=== PATIENT | male | born 1995 | race African-American/Black ===

== ENCOUNTER 2019-01-14 19:33 | Inpatient (IN) | payer MEDICAID ==
[~2019-01-14] VITALS: Ht 162.6 cm; Wt 113.4 kg
--- NOTE | 2019-01-14 20:02 | NUR ---
URINE SENT TO LAB.
[2019-01-14 20:06] LABS: APPEARANCE CLEAR (CLEAR); COLOR STRAW (YELLOW); GLUCOSE 1000 mg/dL (NEGATIVE); NITRITE NEGATIVE (NEGATIVE); PROTEIN NEGATIVE (NEGATIVE)
[2019-01-14 20:07] LABS: BILIRUBIN NEGATIVE (NEGATIVE); KETONE SMALL mg/dL (NEGATIVE); UROBILINOGEN NORMAL (NORMAL)
[2019-01-14 20:40] LABS: BASOPHILS 0.3 % (0-2); EOSINOPHILS 0.7 % (0-7); HEMATOCRIT 40.3 % (42.0-54.0); HEMOGLOBIN 14.7 g/dL (13.5-17.5); IMMATURE GRANULOCYTES 0.3 % (0-5); LYMPHOCYTES 46.8 % (15-50); MCH 27.9 pg (26.0-34.0); MCHC 36.5 g/dL (31.0-37.0); MCV 76.6 fL (80.0-100.0); MEAN PLATELET VOLUME 11.3 fL (7.4-10.4); NEUTROPHILS 43.9 % (40-80); PLATELET COUNT 232 10x3/uL (130-400); RBC 5.26 10x6/uL (4.20-6.10); RDW 13.2 % (11.5-14.5); WBC 7.1 10x3/uL (4.8-10.8)
[2019-01-14 21:11] LABS: KETONE - SERUM NEGATIVE (NEGATIVE)
[2019-01-14 21:27] LABS: ALBUMIN 4.2 g/dL (3.4-5.0); ALKALINE PHOSPHATASE 191 U/L (46-116); ALT (SGPT) 34 U/L (10-68); BILIRUBIN - TOTAL 0.36 mg/dL (0.2-1.3); CALC OSMOLALITY 288 mosm/kg (275-300); CALCIUM 9.3 mg/dL (8.5-10.1); CARBON DIOXIDE 27.4 mmol/L (21.0-32.0); CHLORIDE - SERUM 95 mmol/L (98-107); CREATININE - SERUM 1.2 mg/dL (0.6-1.3); MAGNESIUM - SERUM 1.7 mg/dL (1.8-2.4); POTASSIUM - SERUM 3.7 mmol/L (3.5-5.1); PROTEIN - SERUM 8.1 g/dL (6.4-8.2); SODIUM 133 mmol/L (136-145); UREA NITROGEN 15 mg/dL (7-18); eGFR NON AFRICAN AMERICAN 79 mL/min (90-120)
--- NOTE | 2019-01-14 21:37 | NUR ---
CRITICAL LAB CALLED BY [facility] IN LAB. SERUM GLUCOSE 494. THIS NURSE READ RESULT BACK AND NOTIFIED EDP.
[2019-01-14 21:38] LABS: GLUCOSE 494 mg/dL (74-106)
--- NOTE | 2019-01-14 21:56 | NUR ---
FSBS IS 355.
--- NOTE | 2019-01-14 23:09 | NUR ---
FSBS 247.
[2019-01-15 00:05] VITALS: BP 144/82; BMI 43.0
--- NOTE | 2019-01-15 01:09 | NUR ---
PT SITTING UP IN BED, TEACHING ON DM TYPE 2. PT VOICED CONCERN ON DIETING. TEACHING ON RESOURCES AVAILABLE TO PT. PT VOICED UNDERSTANDING. CONT WITH POC.
[2019-01-15 04:26] VITALS: BP 135/90
[2019-01-15 06:16] LABS: CALC OSMOLALITY 285 mosm/kg (275-300); CALCIUM 8.6 mg/dL (8.5-10.1); CHLORIDE - SERUM 100 mmol/L (98-107); CREATININE - SERUM 0.9 mg/dL (0.6-1.3); GLUCOSE 269 mg/dL (74-106); PHOSPHOROUS 3.3 mg/dL (2.5-4.9); SODIUM 139 mmol/L (136-145); UREA NITROGEN 11 mg/dL (7-18); eGFR NON AFRICAN AMERICAN > 90 mL/min (90-120)
[2019-01-15 06:24] LABS: HEMATOCRIT 38.6 % (42.0-54.0); HEMOGLOBIN 13.7 g/dL (13.5-17.5); MCH 27.1 pg (26.0-34.0); MCHC 35.5 g/dL (31.0-37.0); MCV 76.3 fL (80.0-100.0); MEAN PLATELET VOLUME 11.6 fL (7.4-10.4); PLATELET COUNT 244 10x3/uL (130-400); RBC 5.06 10x6/uL (4.20-6.10); RDW 13.2 % (11.5-14.5); WBC 6.5 10x3/uL (4.8-10.8)
--- NOTE | 2019-01-15 07:10 | NUR ---
REPORT RECEIVED FROM POTTERY DECORATION DESIGNER AND PATIENT CARE ASSUMED. PATIENT LAYING IN BED ON BACK WITH EYES CLOSED AND BREATHING EVENLY. WILL CONTINUE WITH PLAN OF CARE. SR UP X 2 BED IN LOW POSITION AND CALL LIGHT IN REACH.
--- NOTE | 2019-01-15 07:45 | NUR ---
POTASSIUM 3.0. MEDICATED PER MAR WITH KDUR 40 MEQ PO AND LAB DRAW SCHEDULED FOR 4 HOURS.
[2019-01-15 10:07] VITALS: Ht 162.6 cm; Wt 113.4 kg
[2019-01-15 10:49] LABS: LYMPHOCYTES 63 % (15-50); MONOCYTES 9 % (2-11); NEUTROPHILS 28 % (40-80)
[2019-01-15 10:50] LABS: PLATELET ESTIMATE NORMAL
--- NOTE | 2019-01-15 11:20 | NUR ---
PATIENT SITTING UP IN BED WATCHING TV. CONTINUED DIABETIC TEACHING. PATIENT PERFORMED BS CHECK ON SELF. DEMONSTRATED VERY GOOD PROFICIENY. BS 291. PATIENT VENKAT ON OWN INSULIN OF 6 UNITS . PATIENT DENIES ANY NEEDS OR PAIN. WILL CONTINUE TO MONITOR. SR UP X 2 BED IN LOW POSITION AND CALL LIGHT IN REACH.
--- NOTE | 2019-01-15 13:30 | NUR ---
PATIENT UP TO SHOWER. NEW GOWN PUT ON. ENCOURAGED PATIENT TO WALK ON UNIT AND SIT IN BS. EDUCATED PATIENT ABOUT BENEFITS OF INCREASED ACTIVITY ON BS. PATIENT HAS WALKED UNIT TWICE. TOLERATED WELL. PATIENT DENIES ANY NEEDS OR PAIN. WILL CONTINUE TO MONITOR. SR UP X 2 BED IN LOW POSITION AND CALL LIGHT IN REACH.
--- NOTE | 2019-01-15 15:49 | NUR ---
PATIENT WALKING ON UNIT. FRIEND AT SIDE.
[2019-01-15 19:38] VITALS: BP 147/75
--- NOTE | 2019-01-15 21:41 | NUR ---
ASSESSED AT THE BEGINNING OF THE SHIFT. PT IS ALERT AND ORIENTED, ABLE TO VERBALIZE NEEDS. FAMILY AT THE BEDSIDE. PT WAS ABLE TO TAKE HER OWN BLOOD SUGAR AND IT WAS 358. SHE WAS ALSO INSTRUCTED AND ABLE TO GIVE HER ON SLIDING SCALE AND LANTUS INSULIN. PT STATED SHE HAD GIVEN HER FATHER INSULIN IN THE PAST. THIS WAS THE FIRST TIME SHE GAVE LANTUS BUT HAD NO PROBLEM WITH IT.
--- NOTE | 2019-01-15 21:45 | MORECARE ---
CASE MANAGEMENT DISCHARGE SUMMARY PATIENT: NATHALY DUMONT UNIT: [id number] ADM DATE: 01/14/19 AGE: 23 : [birth year] SEX: M ROOM/BED: D.1208 AUTHOR: SHRUTHI MORALES PHYSICIAN: REFERRING PHYSICIAN: CHRISTIAN MORALES MD DATE OF SERVICE: 01/15/19 Discharge Plan Patient Name: NATHALY DUMONT [facility] [facility] 1995 Planned Disposition: Home Anticipated Discharge Date: Discharge Date: Expected LOS: Initial Reviewer: [email or web address] Initial Review Date: 01/14/2019 Generated: 01/15/19 10:45 pm DCPIA - Discharge Planning Initial Assessment Updated by [email or web address]: Alexandra Castelan on 01/15/19 9:45 pm * Is the patient Alert and Oriented? Yes * How many steps to enter\exit or inside your home? 10 * PCP NO PCP * Pharmacy [facility] [address] [address] * Preadmission Environment Home Alone * ADLs Independent * Equipment None * List name and contact numbers for known caregivers / representatives who currently or will assist patient after discharge: MARINA BRAND [facility] [phone] * Verbal permission to speak to the caregivers and representatives has been obtained from the patient. Yes * Community resources currently utilized None * Additional services required to return to the preadmission environment? No * Can the patient safely return to the preadmission environment? Yes * Has this patient been hospitalized within the prior 30 days at any hospital? No Patient Name: NATHALY DUMONT Page [id number] at 2145 All edits/amendments must be made on the electronic document DICTATION DATE: 01/15/192144 WRAPPER LAYER AND EXAMINER SOFT WORK: GARETH 01/15/192144 RPT#: [id number] DC DATE: STATUS: ADM IN [facility] [address] [place] [address] END OF REPORT
--- NOTE | 2019-01-15 21:52 | MORECARE ---
CASE MANAGEMENT DISCHARGE SUMMARY PATIENT: NATHALY DUMONT UNIT: [id number] ADM DATE: 01/14/19 AGE: 23 : [birth year] SEX: M ROOM/BED: D.1208 AUTHOR: CARMEN,DOC PHYSICIAN: REFERRING PHYSICIAN: CHRISTIAN MORALES MD DATE OF SERVICE: 01/15/19 Discharge Plan Patient Name: NATHALY DUMONT Facility: [facility]:[place] : 1995 Planned Disposition: Home Anticipated Discharge Date: Discharge Date: Expected LOS: Initial Reviewer: [email or web address] Initial Review Date: 01/14/2019 Generated: 01/15/19 10:52 pm Comments DCP- Discharge Planning Updated by [email or web address]: Alexandra Castelan on 01/15/19 8:[address] Patient Name: NATHALY DUMONT Admission Status: ER Accout number: [id number] Admission Date: 01-14-2019 : 1995 Admission Diagnosis: Attending: CHRISTIAN MORALES Current LOS: 1 Anticipated DC Date: Planned Disposition: Home Primary Insurance: MEDICAID [place] PENDING Discharge Planning Comments: CM met with patient at bedside after explaining CM role and obtaining verbal consent. Patient lives at home alone where he is independent with his care and plans to return there upon discharge. Patient feels this would be a safe discharge. CM discussed availability / needs of home health and medical equipment. Patient states he doesn't have any insurance. Patient may need assistance with medications, glucometer and b/p cuff prior to discharge. CM will check with [employer] to see if patient may qualify for Medicaid. Sebas stated that he is Medicaid pending. Patient states he will have transportation home upon discharge. CM will continue to follow and assist as needed with discharge planning / needs. Cotton Weigher Operator: Alexandra Castelan DCPIA - Discharge Planning Initial Assessment Updated by [email or web address]: Alexandra Castelan on 01/15/19 9:45 pm * Is the patient Alert and Oriented? Yes * How many steps to enter\exit or inside your home? 10 * PCP NO PCP * Pharmacy [facility] [place] * Preadmission Environment Home Alone * ADLs Independent * Equipment None * List name and contact numbers for known caregivers / representatives who currently or will assist patient after discharge: MARINA BRAND - MOTHER- [phone] * Verbal permission to speak to the caregivers and representatives has been obtained from the patient. Yes * Community resources currently utilized None * Additional services required to return to the preadmission environment? No * Can the patient safely return to the preadmission environment? Yes * Has this patient been hospitalized within the prior 30 days at any hospital? No Last DP export: 01/15/19 8:45 p Patient Name: NATHALY DUMONT Page [id number] at 2152 All edits/amendments must be made on the electronic document DICTATION DATE: 01/15/192150 DIRECTOR OF RESPIRATORY THERAPY: GARETH 01/15/192150 RPT#: [id number] DC DATE: STATUS: ADM IN [facility] [address] [place] [address] END OF REPORT
[2019-01-16] VITALS: BP 136/93
[2019-01-16 04:00] VITALS: BP 111/57
[2019-01-16 06:57] LABS: BASOPHILS 0.2 % (0-2); EOSINOPHILS 1.9 % (0-7); HEMATOCRIT 35.3 % (42.0-54.0); HEMOGLOBIN 12.3 g/dL (13.5-17.5); IMMATURE GRANULOCYTES 0.7 % (0-5); LYMPHOCYTES 50.1 % (15-50); MCH 27.2 pg (26.0-34.0); MCHC 34.8 g/dL (31.0-37.0); MCV 77.9 fL (80.0-100.0); MEAN PLATELET VOLUME 11.5 fL (7.4-10.4); MONOCYTES 9.9 % (2-11); NEUTROPHILS 37.2 % (40-80); PLATELET COUNT 211 10x3/uL (130-400); RBC 4.53 10x6/uL (4.20-6.10); RDW 13.4 % (11.5-14.5); WBC 5.8 10x3/uL (4.8-10.8)
[2019-01-16 07:03] VITALS: BP 107/61
--- NOTE | 2019-01-16 07:20 | NUR ---
PT RESTING IN BED, FAMILY AT BEDSIDE. SHIFT ASSESSMENT PERFORMED. DENIES ANY NEEDS AT THIS TIME, WILL CONT TO FOLLOW POC
[2019-01-16 07:24] LABS: CALC OSMOLALITY 284 mosm/kg (275-300); CHLORIDE - SERUM 105 mmol/L (98-107); CREATININE - SERUM 0.8 mg/dL (0.6-1.3); GLUCOSE 233 mg/dL (74-106); POTASSIUM - SERUM 3.6 mmol/L (3.5-5.1); SODIUM 140 mmol/L (136-145); UREA NITROGEN 9 mg/dL (7-18); eGFR NON AFRICAN AMERICAN > 90 mL/min (90-120)
[2019-01-16] MEDS ORDERED: LISINOPRIL10 MG PO (11:53)
[2019-01-16] MEDS ORDERED: LANTUS SOL100 UNIT/1 SC (11:54)
[2019-01-16] MEDS ORDERED: HUMULIN R100 U/ML SC (11:56)
--- NOTE | 2019-01-16 14:22 | NUR ---
DISCHARGE INSTRUCTIONS REVIEWED WITH PT AND ALL QUESTIONS ANSWERED. PIV REMOVED WITH CATHTETER TIP INTACT. PT LEFT WITH FAMILY
--- NOTE | 2019-01-16 21:58 | MORECARE ---
CASE MANAGEMENT DISCHARGE SUMMARY PATIENT: NATHALY DUMONT UNIT: [id number] ADM DATE: 01/14/19 AGE: 23 : [birth year] SEX: M ROOM/BED: D.1208 AUTHOR: CARMEN,DOC PHYSICIAN: REFERRING PHYSICIAN: CHRISTIAN MORALES MD DATE OF SERVICE: 01/16/19 Discharge Plan Patient Name: NATHALY DUMONT Facility: [facility]:[place] : 1995 Planned Disposition: Home Anticipated Discharge Date: Discharge Date: 01/16/2019 Expected LOS: Initial Reviewer: [email or web address] Initial Review Date: 01/14/2019 Generated: 01/16/19 10:58 pm Comments DCP- Discharge Planning Updated by [email or web address]: Alexandra Castelan on 01/16/19 8:[address] CM gave patient his insulin and syringes that the nursing staff had gathered for discharge for dosing until Medicaid come into affect. CM gave patient information on [facility] for PCP. CM gave patient script for diabetic supplies glucometer, test strips, lancets, alcohol wipes, and syringes. CM stated that insulin order has been sent to his pharmacy so he can get it filled once Medicaid has started. CM also gave patient number to call to [employer] so he will be able to check status of Medicaid. CM will continue to follow and assist as needed with discharge planning / needs. DCP- Discharge Planning Updated by [email or web address]: Alexandra Castelan on 01/15/19 8:[address] Patient Name: NATHALY DUMONT Admission Status: ER Accout number: [id number] Admission Date: 01-14-2019 : 1995 Admission Diagnosis: Attending: CHRISTIAN MORALES Current LOS: 1 Anticipated DC Date: Planned Disposition: Home Primary Insurance: MEDICAID [place] PEND[place] Discharge Planning Comments: CM met with patient at bedside after explaining CM role and obtaining verbal consent. Patient lives at home alone where he is independent with his care and plans to return there upon discharge. Patient feels this would be a safe discharge. CM discussed availability / needs of home health and medical equipment. Patient states he doesn't have any insurance. Patient may need assistance with medications, glucometer and b/p cuff prior to discharge. CM will check with [employer] to see if patient may qualify for Medicaid. Sebas stated that he is Medicaid pending. Patient states he will have transportation home upon discharge. CM will continue to follow and assist as needed with discharge planning / needs. Supervisor Filling And Packing: Alexandra Castelan DCPIA - Discharge Planning Initial Assessment Updated by [email or web address]: Alexandra Castelan on 01/15/19 9:45 pm * Is the patient Alert and Oriented? Yes * How many steps to enter\exit or inside your home? 10 * PCP NO PCP * Pharmacy [facility] [address] [place] * Preadmission Environment Home Alone * ADLs Independent * Equipment None * List name and contact numbers for known caregivers / representatives who currently or will assist patient after discharge: MARINA BRAND - [facility]- [phone] * Verbal permission to speak to the caregivers and representatives has been obtained from the patient. Yes * Community resources currently utilized None * Additional services required to return to the preadmission environment? No * Can the patient safely return to the preadmission environment? Yes * Has this patient been hospitalized within the prior 30 days at any hospital? No Last DP export: 01/15/19 8:52 p Patient Name: NATHALY DUMONT Page [id number] at 2158 All edits/amendments must be made on the electronic document DICTATION DATE: 01/16/192157 EQUIPMENT MAINTENANCE TECH: GARETH 01/16/192157 RPT#: [id number] DC DATE:01/16/19 STATUS: DIS IN [facility] [address] [place] [address] END OF REPORT
--- NOTE | 2019-01-16 22:13 | MORECARE ---
CASE MANAGEMENT DISCHARGE SUMMARY PATIENT: NATHALY DUMONT UNIT: [id number] ADM DATE: 01/14/19 AGE: 23 : [birth year] SEX: M ROOM/BED: D.1208 AUTHOR: CRAMEN,DOC PHYSICIAN: REFERRING PHYSICIAN: CHRISTIAN MORALES MD DATE OF SERVICE: 01/16/19 Discharge Plan Patient Name: NATHALY DUMONT Facility: [facility]:[place] : 1995 Planned Disposition: Home Anticipated Discharge Date: Discharge Date: 01/16/2019 Expected LOS: Initial Reviewer: [email or web address] Initial Review Date: 01/14/2019 Generated: 01/16/19 11:13 pm Comments DCP- Discharge Planning Updated by [email or web address]: Alexandra Castelan on 01/16/19 8:[address] CM gave patient his insulin and syringes that the nursing staff had gathered for discharge for dosing until Medicaid come into affect. CM gave patient information on [facility] for PCP. CM gave patient script for diabetic supplies glucometer, test strips, lancets, alcohol wipes, and syringes. CM stated that insulin order has been sent to his pharmacy so he can get it filled once Medicaid has started. CM also gave patient number to call to [employer] so he will be able to check status of Medicaid. CM will continue to follow and assist as needed with discharge planning / needs. DCP- Discharge Planning Updated by [email or web address]: Alexandra Castelan on 01/15/19 8:[address] Patient Name: NATHALY DUMONT Admission Status: ER Accout number: [id number] Admission Date: 01-14-2019 : 1995 Admission Diagnosis: Attending: CHRISTIAN MORALES Current LOS: 1 Anticipated DC Date: Planned Disposition: Home Primary Insurance: MEDICAID [place] PEND[place] Discharge Planning Comments: CM met with patient at bedside after explaining CM role and obtaining verbal consent. Patient lives at home alone where he is independent with his care and plans to return there upon discharge. Patient feels this would be a safe discharge. CM discussed availability / needs of home health and medical equipment. Patient states he doesn't have any insurance. Patient may need assistance with medications, glucometer and b/p cuff prior to discharge. CM will check with [employer] to see if patient may qualify for Medicaid. Sebas stated that he is Medicaid pending. Patient states he will have transportation home upon discharge. CM will continue to follow and assist as needed with discharge planning / needs. Furniture Assembler And Installer: Alexandra Castelan MSPIA - Discharge Planning Initial Assessment Updated by [email or web address]: Alexandra Castelan on 01/15/19 9:45 pm * Is the patient Alert and Oriented? Yes * How many steps to enter\exit or inside your home? 10 * PCP NO PCP * Pharmacy [facility] [address] * Preadmission Environment Home Alone * ADLs Independent * Equipment None * List name and contact numbers for known caregivers / representatives who currently or will assist patient after discharge: MARINA BRAND - [facility]- [phone] * Verbal permission to speak to the caregivers and representatives has been obtained from the patient. Yes * Community resources currently utilized None * Additional services required to return to the preadmission environment? No * Can the patient safely return to the preadmission environment? Yes * Has this patient been hospitalized within the prior 30 days at any hospital? No Last DP export: 01/16/19 8:58 p Patient Name: NATHALY DUMONT Page [id number] at 5693 All edits/amendments must be made on the electronic document DICTATION DATE: 01/16/192212 DELIVERY NURSE: GARETH 01/16/192212 RPT#: [id number] DC DATE:01/16/19 STATUS: DIS IN [facility] [address] [place] [address] END OF REPORT
== END 2019-01-16 14:29 | disposition home or self-care (01) | DRG 638 ==
LOC: D.ER 19:33 → D.M3 21:10
PROVIDERS: Emergency Medicine; ADMIT Internal Medicine Nephrology; ATTEND Internal Medicine Nephrology
DX: E11.65 Type 2 diabetes mellitus with hyperglycemia (principal); Z68.41 Body mass index [BMI] 40.0-44.9, adult; I16.1 Hypertensive emergency; E87.6 Hypokalemia; E66.01 Morbid (severe) obesity due to excess calories